=== PATIENT | male | born 1985 | race Caucasian/White ===

== ENCOUNTER 2020-09-07 19:41 | Emergency (ER) | payer OTHER, SELFPAY ==
--- NOTE | 2020-09-07 19:45 | DI.CT_ITS ---
EXAM: CT ABDOMEN PELVIS W CLINICAL HISTORY: upper abdominal pain TECHNIQUE: COMPARISON: No exams were available for comparison FINDINGS: CT examination of the abdomen and pelvis was performed with bolus infusion of 100 cc of Omnipaque 350 . Images obtained through the lung bases are unremarkable. There appears to be mild hepatomegaly and hepatic steatosis. Spleen is unremarkable in appearance.. There is cholelithiasis without evidence of a pericholecystic fluid collection or gallbladder wall th ickening. Gallbladder is mildly distended. No biliary dilatation. Pancreas is unremarkable in appearance. Adrenals appear normal bilaterally. Kidneys appear normal with no evidence of renal mass, hydronephrosis, or nephrolithiasis There is no evidence of abdominal or pelvic adenopathy. Abdominal aorta is of normal diameter and no major vascular abnormality is seen. Appendix is normal. No evidence diverticulitis or bowel obstruction. No significant abdominal wall hernia seen. Impression: Cholelithiasis is noted. Hepatomegaly and hepatic steatosis are noted as well. RADIATION DOSE DELIVERED: 1,619.41mGy.cm Total DLP 1,619.41mGy.cm Total DLP DATA REPOSITORY: All CT scans at this facility are submitted to the National Radiology Data Registry (NRDR) Dose Index Registry (DIR) with the [employer] ([employer]). RADIATION OPTIMIZATION: All CT scans at this facility use at least one of these dose optimization te chniques: automated exposure control; mA and/or kV adjustment per patient size (includes targeted exa ms where dose is matched to clinical indication); or iterative reconstruction.
[2020-09-07 19:48] VITALS: BP 172/78; PULSE 74; RESP 20; TEMP 36.7; O2SAT 95
--- NOTE | 2020-09-07 20:00 | ED.GENADUL_ITS ---
Discharge Plan Disposition Patient Disposition: HOME Condition: Stable Discharge Details Clinical Impression: Abdominal pain, Biliary colic Primary Care Provider: JenniferLocal ED Provider: Moshe Delgado Home Meds and New Rx's Prescriptions: New ondansetron 4 mg tablet,disintegrating 4 mg PO Q8H PRN (Reason: nausea and vomiting) Qty: 30 RF: 0 ondansetron 4 mg tablet,disintegrating 4 mg PO Q8H PRN (Reason: nausea and vomiting) Qty: 30 RF: 0 Discharge Instructions Instructions: Abdominal Pain (ED) Additional Instructions: you have gallstones which are likely causing your pain, there is no evidence of a gallbladder infection at this time follow up with your primary care provider this week and discuss seeing a general surgeon if you have severe worsening pain or persistent vomit return to the emergency department you can take 1000mg tylenol and 600mg ibuprofen every 6 hours for pain as needed Medical Decision Making 35 yo male who denies chronic medical problems comes in with chief complaint of abdominal pain. He is visiting for [facility] from [place] and ate tonight and within an hour started to have upper abdominal pain right more than left and one episode of vomit. Denies fevers, chest pain, chest pressure, dyspnea. He arrives in no distress but does have tenderness on exam in the epigstric and ruq no lower abodmen tenderness and no son's sign on initial exam. Given location of pain concern for cholecystitis vs pancreatitis, will obtain labs and ct to further evaluate. No pain out of proportion to exam so doubt mesenteric ischemia labs show no acute findings and ct shows cholelithiasis with hepatic steatosis. Pain improved and still negative son's sign. Given improved symptoms and reassuring workup patient is stable for d/c and he is going to f/u with his pcp this week and be referred to general surgeon where he lives in [place]. Return precautions given Differential Diagnosis Differential Diagnosis: gastritis, cholecystitis, pancreatitis Medical Records Medical records reviewed: Yes I reviewed the patient's medical records. Imaging Data Radiologic Study: Attestation: I personally reviewed and interpreted this imaging study as follows: Imaging: X-Ray Radiologist's impression: IMPRESSION: Hepatomegaly and hepatic steatosis. Cholelithiasis, no acute cholecystitis Lab Data Lab results reviewed: Yes I reviewed the patient's lab results. HPI General Mode of arrival: ambulatory . Date/Time Provider Initiated Documentation: 04/03/21 19:49 . Limitations to Documentation: no limitations . Information obtained by: patient . History of Present Illness 35 year old M presents to the emergency department with the chief complaint of abdominal pain, described as moderate, Quality is described as stabbing, and is localized to the abdomen. Patient reports no radiation. Patient started experiencing this hour(s) (2) and it has been constant. No relieving factors improve symptom(s), No exacerbating factors reported . Patient notes nausea/vomiting. Patient did receive the following treatments prior to arrival, none Related Data Home Medications Medication Instructions Recorded Confirmed ondansetron 4 mg PO Q8H PRN #30 tab 09/07/20 ondansetron 4 mg PO Q8H PRN #30 tab 09/07/20 Previous Rx's Medication Instructions Recorded ondansetron 4 mg PO Q8H PRN #30 tab 09/07/20 ondansetron 4 mg PO Q8H PRN #30 tab 09/07/20 Allergies Allergy/AdvReac Type Severity Reaction Status Date / Time No Known Allergies Allergy Unverified 09/07/20 19:54 General Stated Complaint: Abd Prob JESSICA: 3 Review of Systems All systems reviewed & are unremarkable except as noted in HPI and below Constitutional Constitutional: Denies chills, Denies fever(s) and Denies weakness Cardiovascular Cardiovascular: Denies chest pain and Denies dyspnea Respiratory Respiratory: Denies cough and Denies dyspnea Genitourinary Genitourinary: Denies dysuria Musculoskeletal Musculoskeletal: Denies joint swelling Integumentary/Breasts Skin/Breast: Denies rash Neurologic Neurologic: Denies weakness [facility] Social History Smoking/Tobacco Use Status: Never Smoking risk assessment performed?: Yes Alcohol Intake: current Alcohol Intake frequency: a few times a month Drug use: Never Substance use type: does not use Do you feel safe at home: Yes Do you feel safe in your relationship?: Yes Exam Const General: no acute distress Orientation: alert HENMT Head: normal to inspection Ears: external ears normal General nose exam: external nose normal Mouth: moist mucous membranes Eyes General: appearance normal, both eyes and all related structures Neck Neck: normal visual inspection Resp Effort & Inspection: normal respiratory effort and able to speak in complete sentences Cardio Rate: regular rate GI Palpation: soft and tender Skin General skin exam: no rashes or lesions noted Neuro General: patient alert and patient oriented x3 Extrem General: normal to inspection Psych Mental Status: mental status grossly normal Course Vital Signs Vital signs: Vital Signs Temperature 36.7 C 09/07/20 19:48 Pulse 74 09/07/20 19:48 Respiratory Rate 20 09/07/20 19:48 Blood Pressure 172/78 H 09/07/20 19:48 Pulse Oximetry 95 09/07/20 19:48 Temperature 36.7 C 09/07/20 19:48 Temperature Source Skin 09/07/20 19:48 Pulse 74 09/07/20 19:48 Respiratory Rate 20 09/07/20 19:48 Respiratory Effort Non-Labored 09/07/20 19:55 Blood Pressure 172/78 H 09/07/20 19:48 Blood Pressure Position Supine 09/07/20 19:48 Pulse Oximetry 95 09/07/20 19:48 Oxygen Delivery Method Room Air 09/07/20 19:48 Oxygen Flow Rate 0 09/07/20 19:48 Pain Level 8 09/07/20 19:48
[2020-09-07] MEDS: Ondansetron 4 MG/2 ML VIAL IVP (20:09)
[2020-09-07] MEDS: Normal Saline 1,000 ML 1000 ML IV (20:09)
[2020-09-07] MEDS: Ketorolac 15 MG/ML VIAL IVP (20:10)
[2020-09-07 20:17] LABS: Abs Immature Grans 0.04 10^3/uL (0.0-0.06); Absolute Basophil Count 0.04 10^3/uL (0.0-0.2); Absolute Lymphocyte Count 2.91 10^3/uL (1.2-3.4); Absolute Monocyte Count 1.05 10^3/uL (0.1-0.8); Absolute Neutrophil Count 5.58 10^3/uL (1.2-6.7); Basophils % 0.4; HCT 46.8 % (40.0-50.0); Immature Grans % 0.4; Lymphocytes % 29.3; MCH 28.8 pg (27.0-33.0); MCHC 34.2 % (32.0-36.0); MCV 84.2 fL (80-95); MPV 8.5 fL (8.0-11.0); Monocytes % 10.6; Neutrophils % 56.3; Nucleated RBC 0 %; Platelet Count 263 10^3/uL (130-400); RBC 5.56 10^6/uL (4.36-5.78); RDW 13.3 % (11.8-14.1); RDW-SD 41.3 fL; WBC 9.92 10^3/uL (4.4-10.8)
[2020-09-07 20:25] LABS: PTT Activated 24.3 sec (21.0-27.5); Prothrombin Time 10.3 sec (9.3-11.0)
[2020-09-07 20:26] LABS: ALT 102 U/L (16-63); AST 40 U/L (15-37); Albumin 3.7 g/dL (3.4-5.0); Alkaline Phosphatase 53 U/L (46-116); Anion Gap 6.7 mmol/L (3-11); BUN 22 mg/dL (7-18); Bilirubin, Direct 0.1 mg/dL (0.0-0.2); Bilirubin, Total 0.3 mg/dL (0.2-1.0); CO2 29.3 mmol/L (21.0-32.0); CREATININE 1.2 mg/dL (0.70-1.30); Calcium 9.8 mg/dL (8.5-10.1); Chloride 103 mmol/L (98-107); Glucose 99 mg/dL (74-106); Lipase 128 U/L (73-393); Potassium 4.3 mmol/L (3.5-5.1); Sodium 139 mmol/L (136-145); Total Protein 8.4 g/dL (6.4-8.2)
[2020-09-07 20:28] LABS: Bilirubin Negative (Negative); Blood Negative (Negative); Clarity Clear (Clear); Glucose Negative (Negative); Ketones Negative (Negative); Leukocyte Esterase Negative (Negative); Nitrite Negative (Negative); Specific Gravity >= 1.030 (1.005-1.025); Urobilinogen 0.2 EU/dL (Up TO 0.2)
[2020-09-07] MEDS: Omnipaque 350 MG/ML 100 ML BTL IJ (20:36)
[2020-09-07] MEDS: Normal Saline - Diluent 50 ML VIAL IV (20:37)
[2020-09-07 20:55] VITALS: BP 138/67; PULSE 67; RESP 18; O2SAT 97
--- NOTE | 2020-09-07 21:06 | DI.VRAD_ITS ---
PROCEDURE INFORMATION: Exam: CT Abdomen And Pelvis With Contrast Exam date and time: 09/07/2020 8:32 PM Age: 35 years old Clinical indication: Abdominal pain TECHNIQUE: Imaging protocol: Computed tomography of the abdomen and pelvis with contrast. COMPARISON: No relevant prior studies available. FINDINGS: Liver: Hepatic steatosis. Hepatomegaly. Gallbladder and bile ducts: Cholelithiasis. Pancreas: Unremarkable. No ductal dilation. Spleen: Unremarkable. No splenomegaly. Adrenal glands: Normal. No mass. Kidneys and ureters: Unremarkable. No hydronephrosis. Stomach and bowel: Unremarkable. No obstruction. No mucosal thickening. Appendix: No evidence of appendicitis. Intraperitoneal space: No free air. No significant fluid collection. Vasculature: No abdominal aortic aneurysm. Lymph nodes: No enlarged lymph nodes. Urinary bladder: Unremarkable as visualized. Reproductive: Unremarkable as visualized. Bones/joints: Unremarkable. No acute fracture. Soft tissues: The abdomen is obese. IMPRESSION: Hepatomegaly and hepatic steatosis. Cholelithiasis, no acute cholecystitis. Dictated and Authenticated by: Randy Thompson MD. Ordering:PEMA Mesa MD
== END 2020-09-07 21:35 | disposition home or self-care (01) ==
PROVIDERS: Emergency Provider Emergency Medicine
DX: K80.20 Calculus of gallbladder without cholecystitis without obstruction (principal); R11.2 Nausea with vomiting, unspecified; K76.0 Fatty (change of) liver, not elsewhere classified
CPT/HCPCS: 36415; 80053; 83690; 96361; 96374; 96375; 99285; 74177; 81003; 82247; 82248; 85025; 85610; 85730; 99284; J1885; J2405; J3490